=== PATIENT | male | born 1950 | race African-American/Black ===

== ENCOUNTER 2016-04-19 19:41 | Inpatient (IN) | payer MEDICARE ==
[~2016-04-19] VITALS: Ht 177.8 cm; Wt 110.7 kg
[~2016-04-19 19:41] MED LIST: ASPIR 8181 MG ORAL; AUGMENTIN 875-1 EAC1 ORAL; CIPRO500 MG PO; GLIMEPIRIDE1 MG ORAL
--- NOTE | 2016-04-19 19:48 | Emergency Room Report ---
History of Present Illness General Chief Complaint: Abnormal Labs Source: Patient, EMS Present Illness HPI The patient presents with hypoglycemia. He was altered and initially his blood sugars less than 20. Paramedics gave D50, oral glucose and then he ate a large meal. He is blood sugar 66 at that time and he was signing out AGAINST MEDICAL ADVICE but then became altered again. Repeat blood sugar was done it was 23. The second amp of D50 was given to the patient and finally his blood sugar was up in the 100s. The patient denies any somatic complaints. No fever, chills, chest pain, cough, sore throat, dyspnea, NVD, joint pain, rashes, change vision, GONSALEZ. Allergies: Coded Allergies: Dust (Verified Allergy, Unknown, 04/19/16) [place] Tree (Verified Allergy, Unknown, 04/19/16) Uncoded Allergies: GRASS (Allergy, Unknown, 04/19/16) Patient History Past Medical History: see triage record, DM Social History: Denies: alcohol use, drug use, smoking Social History Narrative with friend Reviewed Nursing Documentation: PMH: Agreed, PSxH: Agreed Nursing Documentation-PMH Hx Hypertension: Yes Hx Diabetes: Yes Review of Systems All Other Systems: negative except mentioned in HPI Physical Exam Vital Signs Date Time Temp Pulse Resp B/P Pulse Ox O2 Delivery O2 Flow Rate FiO2 04/19/16 19:35 98.4 76 16 183/88 98 Room Air Sp02 EP Interpretation: reviewed, normal General Appearance: well appearing, no apparent distress, GCS 15 Head: normocephalic Eyes: bilateral eye PERRL, bilateral eye normal inspection ENT: moist mucus membranes Neck: supple Respiratory: lungs clear, normal breath sounds Cardiovascular #1: regular rate, rhythm Cardiovascular #2: 2+ radial (R) Gastrointestinal: normal inspection, normal bowel sounds, non tender, no mass, non-distended Musculoskeletal: back normal, gait/station normal, normal range of motion Neurologic: alert, oriented x3, motor strength/tone normal, DTRs symmetric, sensory intact, cerebellar normal, normal gait, speech normal Psychiatric: mood/affect normal Skin: normal inspection, warm/dry Medical Decision Making Diagnostic Impression: Primary Impression: Persistent hypoglycemia Additional Impression: Renal insufficiency ER Course Patient presents with hypoglycemia on oral meds. Ddx: renal failure, occult infection, AMI amongst others. Emergent evaluation with labs, CXR, EKG and repeated glucose determinations. Treatment with glucose as needed. Labs with normal WBC, mild anemia, renal insufficiency, neg tox and urine. EKG and CXR unremarkable. Patient again became hypoglycemic here. D50 given and D5 1/2 NS begun. Needs admission and adjustment of meds. Still hypoglycemic after D5 1/2 started and D50. Repeat D50 and start D10. Glucose finally starting to stabilize. Discussed with Dr. Gallardo who agrees with admission. Laboratory Tests Test 04/19/16 19:59 White Blood Count 7.9 K/UL (4.8-10.8) Red Blood Count 3.85 M/UL (4.70-6.10) L Hemoglobin 11.8 G/DL (14.2-18.0) L Hematocrit 36.8 % (42.0-52.0) L Mean Corpuscular Volume 96 FL (80-99) Mean Corpuscular Hemoglobin 30.5 PG (27.0-31.0) Mean Corpuscular Hemoglobin Concent 31.9 G/DL (32.0-36.0) L Red Cell Distribution Width 13.7 % (11.6-14.8) Platelet Count 229 K/UL (150-450) Mean Platelet Volume 6.0 FL (6.5-10.1) L Neutrophils (%) (Auto) 81.4 % (45.0-75.0) H Lymphocytes (%) (Auto) 11.2 % (20.0-45.0) L Monocytes (%) (Auto) 5.5 % (1.0-10.0) Eosinophils (%) (Auto) 0.8 % (0.0-3.0) Basophils (%) (Auto) 1.1 % (0.0-2.0) Prothrombin Time 10.7 SEC (9.30-11.50) Prothrombin Time INR 1.1 (0.9-1.1) PTT 28 SEC (23-33) Urine Color Pale yellow Urine Appearance Clear Urine pH 5 (4.5-8.0) Urine Specific [place] 1.010 (1.005-1.035) Urine Protein 2+ (NEGATIVE) H Urine Glucose (UA) Negative (NEGATIVE) Urine Ketones Negative (NEGATIVE) Urine Occult Blood 3+ (NEGATIVE) H Urine Nitrite Negative (NEGATIVE) Urine Bilirubin Negative (NEGATIVE) Urine Urobilinogen Normal MG/DL (0.0-1.0) Urine Leukocyte Esterase Negative (NEGATIVE) Urine RBC 2-4 /HPF (0 - 0) H Urine WBC 0-2 /HPF (0 - 0) Urine Squamous Epithelial Cells None /LPF (NONE/OCC) Urine Bacteria Occasional /HPF (NONE) Sodium Level 139 mEQ/L (135-145) Potassium Level 4.5 mEQ/L (3.4-4.9) Chloride Level 100 mEQ/L (98-107) Carbon Dioxide Level 23 mEQ/L (20-30) Anion Gap 16 (5-15) H Blood Urea Nitrogen 35 mg/dL (7-23) H Creatinine 1.8 mg/dL (0.7-1.2) H Estimate Glomerular Filtration Rate 37.8 mL/min (>60) Glucose Level 63 mg/dL (74-106) L Calcium Level 8.4 mg/dL (8.6-10.2) L Total Bilirubin < 0.2 mg/dL (0.0-1.2) Aspartate Amino Transferase (AST) 28 U/L (5-40) Alanine Aminotransferase (ALT) 16 U/L (3-41) Alkaline Phosphatase 103 U/L (40-129) Total Creatine Kinase 423 U/L (38-174) H Troponin I < 0.30 ng/mL (<=0.30) Pro-B-Type Natriuretic Peptide 715 pg/mL (0-125) H Total Protein 7.8 g/dL (6.6-8.7) Albumin 3.8 g/dL (3.5-5.2) Globulin 4.0 g/dL Albumin/Globulin Ratio 0.9 (1.0-2.7) L Lipase 44 U/L (< 60) Urine Opiates Screen Negative (NEGATIVE) Urine Barbiturates Screen Negative (NEGATIVE) Phencyclidine (PCP) Screen Negative (NEGATIVE) Urine Amphetamines Screen Negative (NEGATIVE) Urine Benzodiazepines Screen Negative (NEGATIVE) Urine Cocaine Screen Negative (NEGATIVE) Urine Marijuana (THC) Screen Negative (NEGATIVE) EKG Diagnostic Results Rate: normal Rhythm: NSR ST Segments: no acute changes - LVH Rhythm Strip Diag. Results EP Interpretation: yes Rhythm: NSR, no PVC's, no ectopy Chest X-Ray Diagnostic Results EP Interpretation: Yes Findings: no consolidation, no effusion, no pneumothorax, no acute cardiopulmonary disease Number of Views: 1 Status: improved Disposition: ADMITTED INPATIENT Condition: Serious Luis E Foss M.D. Apr 19, 2016 19:48
[2016-04-19 20:26] LABS: BASOPHILS % (AUTO) 1.1 % (0.0-2.0); EOSINOPHILS % (AUTO) 0.8 % (0.0-3.0); LYMPHOCYTES % (AUTO) 11.2 % (20.0-45.0); MEAN CORPUSCULAR HEMOGLOBIN 30.5 PG (27.0-31.0); MEAN CORPUSCULAR HGB CONC 31.9 G/DL (32.0-36.0); MEAN CORPUSCULAR VOLUME 96 FL (80-99); MONOCYTES % (AUTO) 5.5 % (1.0-10.0); NEUTROPHILS % (AUTO) 81.4 % (45.0-75.0); PLATELET COUNT 229 K/UL (150-450); RED BLOOD COUNT 3.85 M/UL (4.70-6.10); RED CELL DISTRIBUTION WIDTH 13.7 % (11.6-14.8); WHITE BLOOD COUNT 7.9 K/UL (4.8-10.8)
[2016-04-19 20:28] LABS: APPEARANCE,URINE CLEAR; KETONES,URINE NEGATIVE (NEGATIVE); LEUKOCYTE ESTERASE ,URINE NEGATIVE (NEGATIVE); NITRITE,URINE NEGATIVE (NEGATIVE); PH,URINE 5 (4.5-8.0); PROTEIN,URINE 2+ (NEGATIVE); UROBILINOGEN,URINE NORMAL MG/DL (0.0-1.0)
[2016-04-19 20:36] LABS: INR 1.1 (0.9-1.1); PROTHROMBIN TIME 10.7 SEC (9.30-11.50)
[2016-04-19 20:40] LABS: WBC,URINE 0-2 /HPF (0 - 0)
[2016-04-19 20:41] LABS: BACTERIA,URINE OCCASIONAL /HPF
[2016-04-19 20:44] LABS: TROPONIN I < 0.30 ng/mL (<=0.30)
[2016-04-19 20:45] LABS: ALANINE AMINOTRANSFERASE 16 U/L (3-41); ALBUMIN/GLOBULIN RATIO 0.9 (1.0-2.7); ANION GAP 16 (5-15); ASPARTATE AMINO TRANSFERASE 28 U/L (5-40); CALCIUM 8.4 mg/dL (8.6-10.2); CARBON DIOXIDE 23 mEQ/L (20-30); CHLORIDE 100 mEQ/L (98-107); CREATININE 1.8 mg/dL (0.7-1.2); GLOMERULAR FILTRATION RATE 37.8 mL/min (>60); HEMOLYSIS 23; LIPASE 44 U/L (< 60); POTASSIUM 4.5 mEQ/L (3.4-4.9); SODIUM 139 mEQ/L (135-145); TOTAL PROTEIN 7.8 g/dL (6.6-8.7)
[2016-04-19] MEDS: D5 1/2NS 1,000 ML IV SCH (22:00)
[2016-04-19 22:05] VITALS: BP 150/78
[2016-04-19] MEDS ORDERED: Dextrose 10% 1,000 ML IV SCH (22:30)
[2016-04-20] VITALS (12 sets, daily range): BP systolic 109–187; BP diastolic 53–92
[2016-04-20] MEDS ORDERED: SIMVASTATIN5 MG ORAL (01:19)
[2016-04-20] MEDS ORDERED: LOSARTAN POTASS25 MG ORAL (01:19)
[2016-04-20] MEDS ORDERED: GLIMEPIRIDE1 MG ORAL (01:19)
[2016-04-20] MEDS: D5 1/2NS 1,000 ML IV SCH (02:30)
[2016-04-20] MEDS: Dextrose 10% 1,000 ML IV SCH ×3 (04:00→17:11)
[2016-04-20 05:38] LABS: LYMPHOCYTES % (AUTO) 13.1 % (20.0-45.0); MEAN CORPUSCULAR HEMOGLOBIN 31.3 PG (27.0-31.0); MEAN CORPUSCULAR HGB CONC 33.1 G/DL (32.0-36.0); MEAN CORPUSCULAR VOLUME 95 FL (80-99); MEAN PLATELET VOLUME 6.2 FL (6.5-10.1); MONOCYTES % (AUTO) 7.3 % (1.0-10.0); NEUTROPHILS % (AUTO) 76.6 % (45.0-75.0); PLATELET COUNT 214 K/UL (150-450); RED BLOOD COUNT 3.41 M/UL (4.70-6.10); RED CELL DISTRIBUTION WIDTH 13.4 % (11.6-14.8); WHITE BLOOD COUNT 6.3 K/UL (4.8-10.8)
[2016-04-20 06:58] LABS: HEMOGLOBIN A1C 6.7 % (< 6.0)
[2016-04-20 07:03] LABS: ALANINE AMINOTRANSFERASE 14 U/L (3-41); ALBUMIN/GLOBULIN RATIO 0.9 (1.0-2.7); ANION GAP 15 (5-15); ASPARTATE AMINO TRANSFERASE 25 U/L (5-40); CALCIUM 8.1 mg/dL (8.6-10.2); CARBON DIOXIDE 21 mEQ/L (20-30); CHLORIDE 104 mEQ/L (98-107); CHOLESTEROL 105 mg/dL (< 200); CHOLESTEROL/HDL RATIO 2.8 (3.3-4.4); CREATININE 1.8 mg/dL (0.7-1.2); GLOMERULAR FILTRATION RATE 37.8 mL/min (>60); HEMOLYSIS 5; LDL CHOLESTEROL (CALC.) 55 mg/dL (60-99); POTASSIUM 4.5 mEQ/L (3.4-4.9); SODIUM 140 mEQ/L (135-145); TOTAL PROTEIN 6.9 g/dL (6.6-8.7)
[2016-04-20 07:09] LABS: THYROID STIMULATING HORMONE 0.131 uIU/mL (0.300-4.500)
[2016-04-20] MEDS ORDERED: Losartan 25mg tab ORAL SCH (09:00)
--- NOTE | 2016-04-20 14:00 | Diagnostic Imaging Report ---
Indication: Chest pain Technique: Single portable AP view of the chest. Findings: Comparison: None. Mild elevation apparent right hemidiaphragm. The bones and extra pulmonary soft tissues, cardiomediastinal silhouette, pulmonary vasculature and parenchyma, and pleural surfaces are otherwise unremarkable. IMPRESSION: Mild elevation apparent hemidiaphragm, nonspecific, acuity indeterminate Otherwise negative portable AP chest.
--- NOTE | 2016-04-20 18:03 | Cardiology Report ---
APPROVED REPORT EKG Measurement Heart [id number] [place] 160P [id number] Normal sinus rhythm Minimal voltage criteria for LVH, may be normal variant Nonspecific ST abnormality Abnormal ECG
--- NOTE | 2016-04-20 22:07 | Consultation ---
DATE OF CONSULTATION: NEPHROLOGY CONSULTATION REFERRING PHYSICIAN: Kp Gallardo M.D. REASON FOR CONSULTATION: Renal failure. HISTORY OF PRESENT ILLNESS: This is a pleasant 65-year-old male, who has diabetes, the patient has been on oral medications, he states that he was diagnosed about five years ago. He came in with hypoglycemia. He said that he was in a [employer] business [employer] trying to get something to eat and apparently he became altered and paramedics were called. Initial blood sugar was 20 and he wanted to sign out against medical advice, but he became altered again and at this time, his blood sugar was 23. The patient was seen in the intensive care unit. He is alert and oriented at this point. I was asked to see him because of his renal failure. His BUN and creatinine are 34 and 1.8 as of today, yesterday was 35 and 1.8. The patient was at [facility] in 08/2012 and his BUN was 30 and creatinine was 1.7. Despite this, the patient is unaware of any problems with his kidneys before. He denies any history of retinopathy. He said he saw an software configuration analyst, Dr. Stevens a few weeks ago and there was no mention of diabetes affecting the eyes. PAST MEDICAL HISTORY: History of hypertension. He has diagnosis also about five years ago. No history of heart problems, no history of stomach problems, and no history of genitourinary problems. SOCIAL HISTORY: No history of smoking or alcohol abuse. The patient is single. He was before, was and he denies history of drug abuse or alcohol abuse. MEDICATIONS: Reviewed in the EMR. REVIEW OF SYSTEMS: No urinary problems specifically no urgency, frequency, or nocturia. PHYSICAL EXAMINATION: GENERAL: The patient is a pleasant 65-year-old male, in no acute distress. VITAL SIGNS: Blood pressure 156/68, pulse 78, respirations 20, and temperature 98.5. HEENT: Pale conjunctivae. Anicteric sclerae. NECK: Supple. LUNGS: Clear to auscultation. HEART: S1 and S2 without murmurs or rubs. ABDOMEN: Soft and nontender. EXTREMITIES: Trace pedal edema bilaterally. LABORATORY FINDINGS: The chemistry panel shows a serum sodium of 140, potassium 4.5, chloride 104, CO2 21, BUN is 34, and creatinine 1.8. CBC shows a WBC of 6.3, hematocrit is 32.2 hemoglobin is 10.7, and platelets 214,000. UA shows 2+ protein. ASSESSMENT: This is a 65-year-old male with history of diabetes and hypertension, who presents with hypoglycemic reaction. He has renal failure, which is likely chronic based on the fact that he had elevated serum creatinine in 2012. On top of that, he has also had 2+ protein in the urine. Very likely, his CKD as a result of his diabetes and hypertension. It is interesting that during the past four years, his kidney function has not progressed if indeed serum creatinine 1.8 is his baseline. It may be due to the fact that he has lost a significant amount of weight in the past and may be his diabetes was not as good under control as it is today. PLAN: I would hydrate the patient cautiously, note the patient has although some diarrhea, so there maybe some component of prerenal azotemia. Once his serum creatinine is stable, I would get a 24-hour urine for protein and creatinine clearance. In terms of workup of risk factor for hyperparathyroidism and renal osteodystrophy , PTH as well as 25- Hydroxy vitamin D levels will be checked. The case was discussed extensively with the patient. All questions were answered. He would not need any Epogen at this time for his anemia and once his hematocrit is below 30, he should be on it. Thank you very much, Dr. Gallardo, for this consultation. Hu Carney M.D. DR: MONA JOB#: [id number] CC: SUMA
[2016-04-21] VITALS: BP 165/87
[2016-04-21] MEDS: Dextrose 10% 1,000 ML IV SCH ×2 (03:18→11:45)
[2016-04-21 04:00] VITALS: BP 151/79
--- NOTE | 2016-04-21 06:57 | History and Physical Report ---
DATE OF ADMISSION: 04/19/2016 HISTORY OF PRESENT ILLNESS: The patient is a very pleasant middle-aged gentleman with history of hypertension, diabetes, history of previous peripheral vascular disease, and osteo of his foot in the past, who presented to the emergency room brought in by paramedics secondary to alteration in mental status. He is noted to have blood sugars in the 20s. He was given D50 in the field as well as oral glucose and ate a large meal. His blood sugar went to 66 and he presented to the emergency room. He wanted to sign out against medical advice, but, however, he became altered again. His blood sugar came down to 23. The patient had previously been on Januvia, however, he could not afford it. He was placed on glimepiride. He has been on the glimepiride over the past few months. He denies any polyuria or polydipsia. Denies any similar episodes in the past. In the ER, he was given another amp of D50 and his blood sugars went up to 100. He has required several doses of D50 and thus we decided to admit him and monitor his blood sugars closely. He denies any fevers or chills. No chest pain. No shortness of breath. No headache. No abdominal pain. No urinary symptoms. PAST MEDICAL HISTORY: Includes history of hypertension, history of hypercholesterolemia, history of diabetes, history of peripheral vascular disease, and history of osteo. PAST SURGICAL HISTORY: He had two surgeries to his feet. ALLERGIES: No known drug allergies. SOCIAL HISTORY: Does not smoke. Does drink any alcohol. Does not use any illicit drugs. PHYSICAL EXAMINATION: GENERAL: He is well developed and well nourished, currently in no apparent distress. VITAL SIGNS: Revealed a blood pressure of 154/75, pulse 78, respirations of 20, temperature 98.4 degrees, and pulse oximetry 98%. HEENT: Head is normocephalic and atraumatic. Pupils are equal and reactive to light. Extraocular muscles are intact. Eyes are anicteric. NECK: Supple. Full range of motion. LUNGS: Clear. HEART: Regular rate and rhythm. ABDOMEN: Soft. Positive bowel sounds. EXTREMITIES: No edema, clubbing, or cyanosis. NEUROLOGIC: He is alert and nonfocal. LABORATORY DATA: Revealed a white count of 7.9, hemoglobin 11.8, hematocrit 36.8, and platelet count 229,000. Glucose of 63 with a BUN of 35, creatinine 1.8, sodium 139, potassium 4.5, chloride 100, and bicarbonate 23. Troponin less than 0.03. ProBNP is 715. TSH was 0.131. Urinalysis reveal WBCs 3-4, RBCs 3-4, and protein. Chest x-ray is negative, mildly elevation of specific otherwise negative. ASSESSMENT AND PLAN: The patient is a pleasant gentleman with history of diabetes and hypertension presents with alteration of mental status noted to be hypoglycemic, glimepiride did not help. The patient has required several doses of D50. The patient will be admitted and Accu-Cheks will be monitored hourly. We will place him on D10 fluids. Monitor his Accu-Cheks. I will ask Endocrine consultation to see him as well. He does have baseline renal insufficiency, which we will monitor. Continue his current medications. If TSH is on the low side, we will check thyroid function tests and the patient should be on deep venous thrombosis and ulcer prophylaxis. Kp Gallardo M.D. DR: INAN JOB#: [id number] CC:
[2016-04-21 08:00] VITALS: BP 148/82
[2016-04-21 08:19] LABS: HEMOLYSIS 5; IRON 57 ug/dL (59-158); TOTAL IRON BINDING CAPACITY 216 ug/dL (250-400)
[2016-04-21 08:29] LABS: PSA TOTAL 1.6 ng/mL (< 4.5)
[2016-04-21 08:36] LABS: BASOPHILS % (AUTO) 0.9 % (0.0-2.0); EOSINOPHILS % (AUTO) 3.6 % (0.0-3.0); LYMPHOCYTES % (AUTO) 21.6 % (20.0-45.0); MEAN CORPUSCULAR HEMOGLOBIN 30.9 PG (27.0-31.0); MEAN CORPUSCULAR HGB CONC 32.9 G/DL (32.0-36.0); MEAN CORPUSCULAR VOLUME 94 FL (80-99); MEAN PLATELET VOLUME 5.9 FL (6.5-10.1); NEUTROPHILS % (AUTO) 64.9 % (45.0-75.0); PLATELET COUNT 238 K/UL (150-450); RED BLOOD COUNT 3.86 M/UL (4.70-6.10); WHITE BLOOD COUNT 6.5 K/UL (4.8-10.8)
[2016-04-21 08:41] LABS: CALCIUM 8.3 mg/dL (8.6-10.2); CREATININE 1.8 mg/dL (0.7-1.2); GLOMERULAR FILTRATION RATE 37.8 mL/min (>60); PHOSPHORUS 2.8 mg/dL (2.5-4.8)
[2016-04-21] MEDS ORDERED: Losartan 25mg tab ORAL SCH (09:00)
--- NOTE | 2016-04-21 10:14 | Diagnostic Imaging Report ---
Indication: Elevated renal function test Technique: Renal ultrasound Findings: Examination is technically limited with suboptimal visualization of the kidneys. The right kidney measures 11.0 cm in length. The left kidney measures 11.1 cm in length. Bilateral kidneys demonstrate grossly normal echogenicity. No gross hydronephrosis is seen. The visualized portions of the inferior vena cava are unremarkable. The bladder is partially distended and grossly unremarkable. Impression: Technically limited examination with suboptimal visualization of the kidneys. No hydronephrosis.
[2016-04-21 12:03] VITALS: BP 174/99
--- NOTE | 2016-04-21 12:40 | Wound Care Consultation ---
Wound Assessment Wound Assessment #1: Wound Number: #1 Wound Present on Admission: Yes New Wound: No Status Change of Wound: No Wound Location Body Site Modif: right, plantar Wound Location Body Site: toe Wound Type: other - Fissure Radha Test: Does not Radha Wound Thickness: Full Thickness Wound Length: 1.0 Wound Width: 1.0 Wound Depth: 0.2 Percent of Wound [place]/Red: 100 Wound Drainage Description: Serous Wound Drainage Amount: Scant Wound Drainage Odor: None/Absent Tissue Surrounding Wound: Thick dry scaly skin. Wound General Appearance: Reddened, Bleeding - scant Wound Assessment #2: Wound Number: #2 Wound Present on Admission: Yes New Wound: No Status Change of Wound: No Wound Location Body Site Modif: right, plantar Wound Location Body Site: toe - 1st Wound Type: other - callus surrounded by scar tissue Radha Test: Does not Radha Percent of Wound Bed Yellow/Wh: 100 - yellow callus Wound Drainage Amount: None Wound Drainage Odor: None/Absent Tissue Surrounding Wound: thick dry scaly skin Wound General Appearance: Open to air Wound Assessment #3: Wound Number: #3 Wound Present on Admission: Yes New Wound: No Status Change of Wound: No Wound Location Body Site Modif: right Wound Location Body Site: leg Wound Type: scab Radha Test: Does not Radha Wound Thickness: Full Thickness Wound Length: 2.0 Wound Width: 2.0 Wound Depth: utd Percent of Wound Bed Yellow/Wh: 100 - dry yellow scab Wound Drainage Amount: None Wound Drainage Odor: None/Absent Tissue Surrounding Wound: thick dry scaly skin. Wound General Appearance: Open to air Wound Assessment #4: Wound Number: #4 Wound Present on Admission: Yes New Wound: No Status Change of Wound: No Wound Location Body Site Modif: left, lower Wound Location Body Site: leg Wound Type: other - thick dry scaly skin Wound Drainage Amount: None Wound Drainage Odor: None/Absent Wound General Appearance: Open to air Wound Assessment #5: Wound Number: #5 Wound Present on Admission: Yes New Wound: No Status Change of Wound: No Wound Location Body Site Modif: right, lower Wound Location Body Site: leg Wound Type: other - thick dry scaly skin Wound Drainage Amount: None Wound Drainage Odor: None/Absent Tissue Surrounding Wound: dry Wound General Appearance: Open to air Wound Comment #1 Right planter 1st toe Fissure. #2 Right lower leg scab. #3 Right 1st planter metatarsal head callus with surrounding tissue noted scar tissue. #4 Right lower leg thick dry , scaly skin. #5 Left lower leg thick dry , scaly skin. Recommendation. -FOLLOW UP WITH PODIATRY. -Local wound care as ordered. -Offload affected area. -Turn and reposition. -Keep clean and dry. -Apply A&D to both lower leg skin dryness as ordered. -Assess and follow up with Md if any changes of condition are noted. MAVIS URIBE Apr 21, 2016 12:40
--- NOTE | 2016-04-21 13:29 | Nephrology Progress Note ---
Assessment/Plan Problem List: (1) CKD (chronic kidney disease) Assessment: stable (2) HTN (hypertension) Assessment: not controlled (3) Diabetes mellitus Assessment Increase Cozaar Add Lasix daily Check PTH Watch BP follow BMP Subjective Subjective out of ICU Objective Objective Last 24 Hour Vital Signs Date Time Temp Pulse Resp B/P Pulse Ox O2 Delivery O2 Flow Rate FiO2 04/21/16 12:03 97.5 80 16 174/99 98 04/21/16 08:42 148/82 04/21/16 08:00 97.5 71 15 148/82 98 Room Air 04/21/16 04:00 97.7 69 20 151/79 95 Room Air 04/21/16 00:00 97.9 69 20 165/87 97 Room Air 04/20/16 20:00 98.4 71 17 160/73 97 Room Air Intake and Output 04/20/16 04/21/16 19:00 07:00 Intake Total 1650 ml 1380 ml Output Total 600 ml Balance 1050 ml 1380 ml Intake Oral 1450 ml 280 ml IV Total 200 ml 1100 ml Output Urine Total 600 ml # Voids 2 2 # Bowel Movements 5 1 Laboratory Tests 04/20/16 21:50: Urine Eosinophils None seen, Urine Random Sodium 55, Urine Creatinine 51.0 04/21/16 07:00: White Blood Count 6.5, Red Blood Count 3.86L, Hemoglobin 11.9L, Hematocrit 36.3L , Mean Corpuscular Volume 94, Mean Corpuscular Hemoglobin 30.9, Mean Corpuscular Hemoglobin Concent 32.9, Red Cell Distribution Width 13.0, Platelet Count 238, Mean Platelet Volume 5.9L, Neutrophils (%) (Auto) 64.9, Lymphocytes ( %) (Auto) 21.6, Monocytes (%) (Auto) 9.0, Eosinophils (%) (Auto) 3.6H, Basophils (%) (Auto) 0.9, Sodium Level 135, Potassium Level 5.0H, Chloride Level 99, Carbon Dioxide Level 20, Anion Gap 16H, Blood Urea Nitrogen 29H, Creatinine 1.8H, Estimat Glomerular Filtration Rate 37.8, Glucose Level 195#H, Calcium Level 8.3L, Calcium (Send out) [Pending], Phosphorus Level 2.8, Iron Level 57L, Total Iron Binding Capacity 216L, Percent Iron Saturation 26, Unsaturated Iron Binding 159, Prostate Specific Antigen 1.6, Vitamin D 25- Hydroxy [Pending], 25-Hydroxy Vitamin D2 [Pending], 25-Hydroxy Vitamin D3 [ Pending], Free Thyroxine 1.35, Parathyroid Hormone (Intact) [Pending] Height (Feet): 5 Height (Inches): 10.00 Weight (Pounds): 244 Cardiovascular: normal rate Respiratory/Chest: lungs clear Extremities: moderate edema TANO GOULD Apr 21, 2016 13:29
[2016-04-21] MEDS: Furosemide 40mg tab ORAL SCH (13:36)
[2016-04-21 16:04] VITALS: BP 186/90
--- NOTE | 2016-04-21 19:34 | General Progress Note ---
Assessment/Plan Assessment/Plan hypoglycemia diabetes htn hld pvd renal insufficiency dc iv monitor accuchecks bp controlled monitor renal parameters dc plans Subjective Allergies: Coded Allergies: Dust (Verified Allergy, Unknown, 04/19/16) [place] Tree (Verified Allergy, Unknown, 04/19/16) Uncoded Allergies: GRASS (Allergy, Unknown, 04/19/16) Subjective comfortable bs now better will dc iv Objective Last 24 Hour Vital Signs Date Time Temp Pulse Resp B/P Pulse Ox O2 Delivery O2 Flow Rate FiO2 04/21/16 16:04 97.7 74 15 186/90 99 Room Air 04/21/16 12:03 97.5 80 16 174/99 98 04/21/16 08:42 148/82 04/21/16 08:00 97.5 71 15 148/82 98 Room Air 04/21/16 04:00 97.7 69 20 151/79 95 Room Air 04/21/16 00:00 97.9 69 20 165/87 97 Room Air 04/20/16 20:00 98.4 71 17 160/73 97 Room Air Intake and Output 04/20/16 04/21/16 19:00 07:00 Intake Total 1650 ml 1380 ml Output Total 600 ml Balance 1050 ml 1380 ml Intake Oral 1450 ml 280 ml IV Total 200 ml 1100 ml Output Urine Total 600 ml # Voids 2 2 # Bowel Movements 5 1 Laboratory Tests 04/20/16 21:50: Urine Eosinophils None seen, Urine Random Sodium 55, Urine Creatinine 51.0 04/21/16 07:00: White Blood Count 6.5, Red Blood Count 3.86L, Hemoglobin 11.9L, Hematocrit 36.3L , Mean Corpuscular Volume 94, Mean Corpuscular Hemoglobin 30.9, Mean Corpuscular Hemoglobin Concent 32.9, Red Cell Distribution Width 13.0, Platelet Count 238, Mean Platelet Volume 5.9L, Neutrophils (%) (Auto) 64.9, Lymphocytes ( %) (Auto) 21.6, Monocytes (%) (Auto) 9.0, Eosinophils (%) (Auto) 3.6H, Basophils (%) (Auto) 0.9, Sodium Level 135, Potassium Level 5.0H, Chloride Level 99, Carbon Dioxide Level 20, Anion Gap 16H, Blood Urea Nitrogen 29H, Creatinine 1.8H, Estimat Glomerular Filtration Rate 37.8, Glucose Level 195#H, Calcium Level 8.3L, Calcium (Send out) [Pending], Phosphorus Level 2.8, Iron Level 57L, Total Iron Binding Capacity 216L, Percent Iron Saturation 26, Unsaturated Iron Binding 159, Prostate Specific Antigen 1.6, Vitamin D 25- Hydroxy [Pending], 25-Hydroxy Vitamin D2 [Pending], 25-Hydroxy Vitamin D3 [ Pending], Free Thyroxine 1.35, Parathyroid Hormone (Intact) [Pending] Height (Feet): 5 Height (Inches): 10.00 Weight (Pounds): 244 General Appearance: WD/WN, alert Cardiovascular: normal rate Respiratory/Chest: lungs clear Abdomen: soft MARIA ESTHER MOSQUERA Apr 21, 2016 19:34
[2016-04-21 20:00] VITALS: BP 152/76
--- NOTE | 2016-04-21 20:35 | Consultation ---
Consult Note Consult Note Patient is well known to podiatry service. He states he was doing a 3 day cleanse and not eating. However, he was still taking his diabetes medication. Patient was out with a friend when he felt weak and was experiencing confusion. His friend called the paramedics who brought him to the emergency department where he was found to have a blood glucose in the 20s. He was being followed regularly by podiatry for right plantar foot ulcer. He states the ulcer has healed. No current nausea, vomiting, fevers, or chills reported. Assessment/Plan - Right plantar foot superficial ulcer. Currently no purulence or drainage. Patient has exfoliating skin of bilateral feet with small bleeding fissures. He also has superficial right leg ulceration. Wounds do not appear to be clinically infected. Apply bandaid on the wounds and A&D ointment to the remainder of bilateral foot and legs while avoiding the interdigital areas - Hypoglycemia - Diabetic neuropathy - Peripheral vascular disease with bilateral leg edema. Patient instructed to elevate legs on two pillows Lemuel Cade DPM Apr 21, 2016 20:35
[2016-04-22] VITALS: BP 91/51
[2016-04-22 04:00] VITALS: BP 167/87
[2016-04-22] MEDS: NovoLOG Insulin Flexpen SUBQ SCH ×4 (06:30→21:00)
[2016-04-22 08:14] VITALS: BP 150/81
[2016-04-22 08:51] LABS: CALCIUM 8.8 mg/dL (8.6-10.2); CREATININE 1.8 mg/dL (0.7-1.2); GLOMERULAR FILTRATION RATE 37.8 mL/min (>60); POTASSIUM 5.1 mEQ/L (3.4-4.9)
[2016-04-22] MEDS: Furosemide 40mg tab ORAL SCH ×2 (08:56→18:25)
[2016-04-22] MEDS: Losartan 50mg tab ORAL SCH (08:56)
[2016-04-22 11:57] VITALS: BP 149/98
--- NOTE | 2016-04-22 14:04 | Nephrology Progress Note ---
Assessment/Plan Problem List: (1) CKD (chronic kidney disease) Assessment: stable (2) HTN (hypertension) Assessment: not controlled (3) Diabetes mellitus Plan Increase Lasix watch BP await PTH, Vit D Subjective Subjective In NAD Objective Objective Last 24 Hour Vital Signs Date Time Temp Pulse Resp B/P Pulse Ox O2 Delivery O2 Flow Rate FiO2 04/22/16 11:57 97.3 83 15 149/98 99 Room Air 04/22/16 08:56 150/81 04/22/16 08:14 97.9 75 16 150/81 98 Room Air 04/22/16 04:00 97.9 73 20 167/87 98 Room Air 04/22/16 00:00 97.2 76 20 91/51 91 Room Air 04/21/16 20:00 98.1 78 22 152/76 96 Room Air 04/21/16 16:04 97.7 74 15 186/90 99 Room Air Intake and Output 04/21/16 04/22/16 19:00 07:00 Intake Total 1450 ml 100 ml Output Total 1200 ml Balance 250 ml 100 ml Intake Oral 1450 ml 100 ml Output Urine Total 1200 ml # Voids 9 # Bowel Movements 1 Laboratory Tests 04/22/16 05:05: Sodium Level 139, Potassium Level 5.1H, Chloride Level 102, Carbon Dioxide Level 21, Anion Gap 16H, Blood Urea Nitrogen 30H, Creatinine 1.8H, Estimat Glomerular Filtration Rate 37.8, Glucose Level 220H, Calcium Level 8.8 Height (Feet): 5 Height (Inches): 10.00 Weight (Pounds): 244 Cardiovascular: normal rate Respiratory/Chest: lungs clear Extremities: moderate edema TANO GOULD Apr 22, 2016 14:04
[2016-04-22 16:17] VITALS: BP 142/71
[2016-04-22] MEDS: GlipiZIDE 5mg tab ORAL SCH (17:30)
--- NOTE | 2016-04-22 19:55 | Podiatric Progress Note ---
Assessment/Plan Patient Jenelle Pineda is a 65 year old male who was admitted on Apr 19, 2016 at 21 :55 with hypoglycemia Problems: (1) Diabetic neuropathy (2) Diabetic foot ulcer (3) Ulcer of right leg Assessment/Plan - Right leg and plantar foot ulcers. No purulence, drainage, or surrounding inflammation. Not clinically infected. Cover with bandaids. Continue to wear offloaded shoes when ambulating - Reminded patient about diabetic foot care and daily monitoring of bilateral feet. Patient to improve pedal hygiene by washing feet daily and using a moisturizer while avoiding interdigital areas - Patient will be followed up as an outpatient Subjective Reason for consult Right plantar foot ulcer Allergies: Coded Allergies: Dust (Verified Allergy, Unknown, 04/19/16) [place] Tree (Verified Allergy, Unknown, 04/19/16) Uncoded Allergies: GRASS (Allergy, Unknown, 04/19/16) Subjective Patient is doing well. No pain, nausea, vomiting, fevers, or chills reported. Objective Exam Last 24 Hour Vital Signs Date Time Temp Pulse Resp B/P Pulse Ox O2 Delivery O2 Flow Rate FiO2 04/22/16 16:17 98.1 84 16 142/71 96 Room Air 04/22/16 11:57 97.3 83 15 149/98 99 Room Air 04/22/16 08:56 150/81 04/22/16 08:14 97.9 75 16 150/81 98 Room Air 04/22/16 04:00 97.9 73 20 167/87 98 Room Air 04/22/16 00:00 97.2 76 20 91/51 91 Room Air 04/21/16 20:00 98.1 78 22 152/76 96 Room Air Laboratory Tests Test 04/22/16 05:05 Sodium Level 139 mEQ/L (135-145) Potassium Level 5.1 mEQ/L (3.4-4.9) H Chloride Level 102 mEQ/L (98-107) Carbon Dioxide Level 21 mEQ/L (20-30) Anion Gap 16 (5-15) H Blood Urea Nitrogen 30 mg/dL (7-23) H Creatinine 1.8 mg/dL (0.7-1.2) H Estimat Glomerular Filtration Rate 37.8 mL/min (>60) Glucose Level 220 mg/dL (74-106) H Calcium Level 8.8 mg/dL (8.6-10.2) Microbiology Date/Time Source Procedure Growth Status 04/20/16 09:10 Blood Blood Culture - Preliminary NO GROWTH AFTER 24 HOURS Resulted Exam Narrative Right plantar foot ulcer and anterior leg ulcers are superficial and almost healed. Dermatological Wound Assessment : Exudate Amount: None Lemuel Cade DPM Apr 22, 2016 19:55
[2016-04-22 20:00] VITALS: BP 154/83
--- NOTE | 2016-04-22 22:16 | General Progress Note ---
Assessment/Plan Assessment/Plan hypoglycemia diabetes htn hld pvd renal insufficiency dc iv monitor accuchecks started on glyburiede by endocrine bp controlled monitor renal parameters dc plans tomorrow Subjective Allergies: Coded Allergies: Dust (Verified Allergy, Unknown, 04/19/16) [place] Tree (Verified Allergy, Unknown, 04/19/16) Uncoded Allergies: GRASS (Allergy, Unknown, 04/19/16) Subjective comfortable bs now better now high no chest painor sob Objective Last 24 Hour Vital Signs Date Time Temp Pulse Resp B/P Pulse Ox O2 Delivery O2 Flow Rate FiO2 04/22/16 20:00 97.7 90 20 154/83 98 Room Air 04/22/16 16:17 98.1 84 16 142/71 96 Room Air 04/22/16 11:57 97.3 83 15 149/98 99 Room Air 04/22/16 08:56 150/81 04/22/16 08:14 97.9 75 16 150/81 98 Room Air 04/22/16 04:00 97.9 73 20 167/87 98 Room Air 04/22/16 00:00 97.2 76 20 91/51 91 Room Air Intake and Output 04/21/16 04/22/16 19:00 07:00 Intake Total 1450 ml 100 ml Output Total 1200 ml Balance 250 ml 100 ml Intake Oral 1450 ml 100 ml Output Urine Total 1200 ml # Voids 9 # Bowel Movements 1 Laboratory Tests 04/22/16 05:05: Sodium Level 139, Potassium Level 5.1H, Chloride Level 102, Carbon Dioxide Level 21, Anion Gap 16H, Blood Urea Nitrogen 30H, Creatinine 1.8H, Estimat Glomerular Filtration Rate 37.8, Glucose Level 220H, Calcium Level 8.8 Height (Feet): 5 Height (Inches): 10.00 Weight (Pounds): 244 General Appearance: WD/WN Neck: supple Cardiovascular: normal rate Respiratory/Chest: lungs clear Abdomen: soft MARIA ESTHER MOSQUERA Apr 22, 2016 22:16
[2016-04-23] VITALS: BP 146/77
--- NOTE | 2016-04-23 02:08 | Consultation ---
DATE OF CONSULTATION: 04/21/2016 PODIATRY CONSULTATION CONSULTING SPECIALITY: Podiatry. CONSULTING PHYSICIAN: Lemuel Cade D.P.M. covering for Jerrod Leos D.P.M. REASON FOR CONSULTATION: Right foot ulceration. HISTORY OF PRESENT ILLNESS: The patient is well known to the podiatry service. He states that he had started a three-day cleanse and was not eating regularly, however, he continued to take his diabetes medications. The patient was out with a friend and states that he started noticing confusion and weakness. The friend called the paramedics and the patient was transferred from there. He was noted to have blood glucose level in the 20s. Prior to his admission, the patient was being followed regularly by podiatry service for right-sided foot ulcer. He states that ulcer is close to healed. No current nausea, vomiting, fevers, or chills reported. PAST MEDICAL HISTORY: Hypertension, diabetes, and chronic kidney disease. ALLERGIES: No known drug allergies. MEDICATIONS: Please refer to chart for details. PHYSICAL EXAMINATION: VITAL SIGNS: On 04/21/2016, temperature 97.7 degrees, pulse 74, respiratory rate of 16, blood pressure 186/90, and pulse oximetry is 99% on room air. DERMATOLOGICAL: Right plantar foot with superficial ulceration at the first metatarsal head. There are also multiple superficial ulcerations at the right leg. No purulence, drainage, or surrounding erythema noted. The patient has bilateral foot with dry scaly skin. There is a small fissure at the plantar base of the right big toe as well as the left plantar midfoot. Bilateral toenails are thick and discolored. Bilateral legs with hyperpigmentation. VASCULAR: Pedal pulses are lightly palpable, bilateral legs with pitting edema. NEUROLOGICAL: Insensate to light touch. MUSCULOSKELETAL: Poor muscle strength noted. Bilateral hammertoes present. LABORATORY DATA: Sodium 135, potassium 5.0, chloride 99, carbon dioxide 20, BUN 29, and creatinine 1.8. White blood count of 6.5, red blood count 3.86, hemoglobin 11.9, hematocrit 36.3, platelets of 238,000, and neutrophils of 64.9. ASSESSMENT: 1. Hypoglycemia. 2. Right plantar foot and anterior right leg superficial ulceration, not clinically infected. 3. Diabetic neuropathy. 4. Peripheral vascular disease. PLAN: 1. Apply A&D ointment to bilateral feet and legs while avoiding the interdigital area. 2. The patient is instructed to elevate the legs on two pillows. 3. When ambulating, the patient was instructed to use the off-loaded shoe inserts. 4. Educated patient regarding diabetic foot care. Thank you for the consultation. Lemuel Cade DPM DR: DORYS JOB#: [id number] CC: SUMA
[2016-04-23 04:00] VITALS: BP 143/76
--- NOTE | 2016-04-23 04:57 | Consultation ---
DATE OF CONSULTATION: "NOTE: INCOMPLETE DICTATION" CONSULTING SPECIALITY: Podiatry. CONSULTING PHYSICIAN: Lemuel Cade D.P.M. covering for Jerrod Leos D.P.M. REASON FOR CONSULTATION: Right foot ulcer. HISTORY OF PRESENT ILLNESS: The patient is well known to the Podiatry service. He states he was doing a three-day cleanse and not eating. However, he was still taking his diabetes medication. The patient was out with a friend, was himself weak, and was experiencing confusion. His friend called the paramedics and brought him to the emergency department where he was found to have a blood glucose that runs in the community. He was being followed by Podiatry for right plantar foot ulcer. It is a ulcer and has almost healed. No current nausea, vomiting, fevers, or chills reported. PAST MEDICAL HISTORY: Diabetes, hypertension, and chronic kidney disease. MEDICATIONS: Please review chart for details. ALLERGIES: Dust, grass of all the trees. PHYSICAL EXAMINATION: VITAL SIGNS: Temperature 97.7 degrees, pulse 74, respiratory rate 16, blood pressure 186/90, and pulse oximetry is 99% on room air. LABORATORY DATA: On 04/21/2016, white blood count of 6.5, red blood count of , hemoglobin on 11.9, hematocrit of 36.3, and platelets of 238,000. Sodium 135, potassium 5.0, chloride 99, carbon dioxide 20, BUN 29, and creatinine Lemuel Cade DPM DR: JULIANA JOB#: [id number] CC: SUMA
[2016-04-23] MEDS: NovoLOG Insulin Flexpen SUBQ SCH ×2 (06:17→11:30)
[2016-04-23] MEDS: GlipiZIDE 5mg tab ORAL SCH (06:21)
--- NOTE | 2016-04-23 06:48 | Geriatric Medicine Prog Note ---
DATE: 04/22/2016 SUBJECTIVE: The patient is more comfortable today. OBJECTIVE: VITAL SIGNS: Blood pressure 165/87, pulse 70 , respiratory rate 22, and temperature 98 degrees. RESP-Clear,[facility] LABORATORY DATA: Glucose 137. . ASSESSMENT:Disbetes Mellitus in good control. PLAN: Continue sliding scale NovoLog. QID ac an [facility] Kevin Winters M.D. DR: CINDY JOB#: [id number] CC: SUMA
[2016-04-23 08:00] VITALS: BP 163/60
[2016-04-23] MEDS: Furosemide 40mg tab ORAL SCH (08:55)
[2016-04-23] MEDS: Losartan 50mg tab ORAL SCH (08:56)
[2016-04-23] MEDS ORDERED: FUROSEMIDE40 MG ORAL (09:51)
[2016-04-23] MEDS ORDERED: LOSARTAN POTASS50 MG ORAL (09:52)
[2016-04-23] MEDS ORDERED: GLIPIZIDE5 MG ORAL (09:52)
[2016-04-23] MEDS ORDERED: ATORVASTATIN CA10 MG ORAL (09:54)
[2016-04-23 12:00] VITALS: BP 148/62
--- NOTE | 2016-04-23 12:23 | Nephrology Progress Note ---
Assessment/Plan Problem List: (1) CKD (chronic kidney disease) Assessment: stable (2) HTN (hypertension) Assessment: not controlled (3) Diabetes mellitus Plan cont Lasix Add Amlodipine await PTH, Vit D Subjective Subjective feels ok Objective Objective Last 24 Hour Vital Signs Date Time Temp Pulse Resp B/P Pulse Ox O2 Delivery O2 Flow Rate FiO2 04/23/16 08:56 163/80 04/23/16 08:00 98.6 81 20 163/60 98 Room Air 04/23/16 04:00 98.1 83 20 143/76 98 Room Air 04/23/16 00:00 98.2 84 20 146/77 96 Room Air 04/22/16 20:00 97.7 90 20 154/83 98 Room Air 04/22/16 16:17 98.1 84 16 142/71 96 Room Air Intake and Output 04/22/16 04/23/16 19:00 07:00 Intake Total 1350 ml 490 ml Output Total 200 ml Balance 1150 ml 490 ml Intake Oral 1350 ml 490 ml Output Urine Total 200 ml # Voids 4 2 # Bowel Movements 1 Height (Feet): 5 Height (Inches): 10.00 Weight (Pounds): 244 Cardiovascular: normal rate Respiratory/Chest: lungs clear Extremities: moderate edema TANO GOULD Apr 23, 2016 12:23
[2016-04-23 13:47] VITALS: BP 148/62
--- NOTE | 2016-04-24 12:37 | Discharge Summary ---
DATE OF ADMISSION: 04/19/2016 DATE OF DISCHARGE: 04/23/2016 HOSPITAL COURSE: The patient is a very pleasant, 65-year-old gentleman with history of diabetes who was brought in to the emergency room somewhat altered. The patient has been on glimepiride at home. He is noted to have low blood sugars. He was given D50 in the field and also in the ER required several doses of D50. The patient blood sugars however continued to be hypoglycemic and thus was admitted. The patient needed one hour Accu-Cheks and therefore was admitted in the intensive care unit. He was placed on D10. The patient was seen by from endocrinology. The patient also has some renal insufficiency. He was seen by Dr. Hu Carney. His blood sugars are stable and was transferred on the floor. . started on glyburide. His blood sugars were monitored and was cleared for discharge back to home to follow up as an outpatient with me in the office this week. Kp Gallardo M.D. DR: JING JOB#: [id number] CC:
[2016-04-25 09:16] LABS: CALCIUM 8.4 mg/dL (8.6-10.2); PTH INTACT 71 pg/mL (15-65)
[2016-04-25 09:20] LABS: VITAMIN D 25-OH TOTAL 12 ng/mL (.)
== END 2016-04-23 16:20 | disposition home or self-care (01) | DRG 638 ==
LOC: ENRESERVDT → ENRESERVTM → EDBD 19:41 → EMR 21:53 → MERGE 21:55 → 4W 21:55 → EDBEDREQ 22:44 → 4W 04-20 01:43 → 2W 04-20 04:00 → ICU 04-20 06:03 → 4E 04-20 18:02
DX: E11.649 Type 2 diabetes mellitus with hypoglycemia without coma (principal); L97.911 Non-pressure chronic ulcer of unspecified part of right lower leg limited to breakdown of skin; E11.40 Type 2 diabetes mellitus with diabetic neuropathy, unspecified; E11.621 Type 2 diabetes mellitus with foot ulcer; I12.9 Hypertensive chronic kidney disease with stage 1 through stage 4 chronic kidney disease, or unspecified chronic kidney disease; N18.9 Chronic kidney disease, unspecified; E78.00 Pure hypercholesterolemia, unspecified; I73.9 Peripheral vascular disease, unspecified; L97.511 Non-pressure chronic ulcer of other part of right foot limited to breakdown of skin
CPT/HCPCS: 36415; 71010; 76775; 80048; 80053; 80061; 80300; 81003; 82306; 82550; 82570; 82962; 83036; 83540; 83550; 83690; 83880; 83970; 84100; 84153; 84300; 84439; 84443; 84484; 85025; 85610; 85730; 87040; 89050; 93005; J1815

== ENCOUNTER 2016-04-25 09:43 | Outpatient (RCR) | payer MEDICARE ==
[~2016-04-25 09:43] MED LIST changes: +ATORVASTATIN CA10 MG ORAL; +FUROSEMIDE40 MG ORAL; +GLIPIZIDE5 MG ORAL; +LOSARTAN POTASS25 MG ORAL; +LOSARTAN POTASS50 MG ORAL; +SIMVASTATIN5 MG ORAL
== END 2016-05-01 | disposition home or self-care (01) ==
LOC: WCC 09:43 → MERGE 09:43
DX: L97.812 Non-pressure chronic ulcer of other part of right lower leg with fat layer exposed (principal); I73.9 Peripheral vascular disease, unspecified; E11.42 Type 2 diabetes mellitus with diabetic polyneuropathy; Z86.31 Personal history of diabetic foot ulcer; M20.41 Other hammer toe(s) (acquired), right foot; M20.42 Other hammer toe(s) (acquired), left foot; Z96.641 Presence of right artificial hip joint; I87.2 Venous insufficiency (chronic) (peripheral); I10 Essential (primary) hypertension
CPT/HCPCS: 29580; 82962

== ENCOUNTER 2016-05-02 09:07 | Outpatient (RCR) | payer MEDICARE ==
[~2016-05-02] VITALS: Ht 33 cm; Wt 0.5 kg
== END 2016-05-29 | disposition home or self-care (01) ==
LOC: MERGE 09:07 → WCC 09:07
DX: L97.812 Non-pressure chronic ulcer of other part of right lower leg with fat layer exposed (principal); I73.9 Peripheral vascular disease, unspecified; E11.42 Type 2 diabetes mellitus with diabetic polyneuropathy; Z86.31 Personal history of diabetic foot ulcer; L08.9 Local infection of the skin and subcutaneous tissue, unspecified; L97.512 Non-pressure chronic ulcer of other part of right foot with fat layer exposed; M20.42 Other hammer toe(s) (acquired), left foot; M20.41 Other hammer toe(s) (acquired), right foot; I10 Essential (primary) hypertension; Z96.641 Presence of right artificial hip joint
CPT/HCPCS: 11042; 11045; 82962; 87070; 87181; 87205

== ENCOUNTER 2016-09-12 08:47 | Outpatient (RCR) | payer MEDICARE | END 2016-09-28 | disposition home or self-care (01) | LOC: WCC 08:47 | DX: E11.43 Type 2 diabetes mellitus with diabetic autonomic (poly)neuropathy (principal); Z89.411 Acquired absence of right great toe; Z96.641 Presence of right artificial hip joint; I10 Essential (primary) hypertension; Z79.82 Long term (current) use of aspirin | CPT/HCPCS: 82962; G0463 ==